=== PATIENT | female | born 1980 | race Caucasian/White ===

== ENCOUNTER 2017-03-28 13:22 | Emergency (ER) | payer OTHER ==
[2017-03-28 14:50] LABS: BASOPHIL 0.4 % (0-2); EOSINOPHIL 0.9 % (0-5); HCT 40.5 % (37.0-47.0); HGB 14.4 g/dl (12.5-16.0); LYMPHOCYTE 18.9 % (15-48); MCH 31.1 pg (25.0-31.0); MCHC 35.6 g/dL (32.0-36.0); MCV 87.5 fL (78.0-100.0); MPV 9.9 fL (6.0-9.5); NEUTROPHIL 70.8 % (41-80); PLT 251 K/uL (150-400); RBC 4.63 M/uL (4.20-5.40); RDW 12.1 % (11.5-14.0); WBC 7.7 K/uL (4.0-10.5)
[2017-03-28 15:06] LABS: CREATININE 0.7 mg/dL (0.5-1.0); POTASSIUM 3.4 mmol/L (3.5-5.1)
[2017-03-28 15:45] LABS: BILIRUBIN NEGATIVE (NEGATIVE); BLOOD TRACE-INTACT Ery/uL (NEGATIVE); CLARITY CLEAR (CLEAR); COLOR YELLOW (YELLOW); GLUCOSE (U) NORMAL (NORMAL); KETONE (U) NEGATIVE (NEGATIVE); LEUKOCYTES NEGATIVE Leu/uL (NEGATIVE); NITRITE NEGATIVE (NEGATIVE); PROTEIN NEGATIVE (NEGATIVE); UROBILINOGEN 0.2 mg/dL (0.2-1.0)
[2017-03-28 15:47] LABS: URINARY RBC RARE; URINARY WBC RARE
[2017-03-28 15:50] LABS: AMPHETAMINES POSITIVE (NEGATIVE); BARBITURATES NEGATIVE (NEGATIVE); BENZODIAZEPINES NEGATIVE (NEGATIVE); COCAINE NEGATIVE (NEGATIVE); MARIJUANA (THC) POSITIVE (NEGATIVE); METHADONE NEGATIVE (NEGATIVE); TRICYCLIC ANTIDEPRESSANT NEGATIVE (NEGATIVE)
== END 2017-03-28 16:32 | disposition home or self-care (01) ==
LOC: FER 13:22
PROVIDERS: Nurse Practitioner Family
DX: F41.1 Generalized anxiety disorder (principal); F12.10 Cannabis abuse, uncomplicated; F31.9 Bipolar disorder, unspecified
CPT/HCPCS: 36415; 80048; 80305; 81001; 85025

== ENCOUNTER 2021-10-13 12:53 | Emergency (ER) | payer OTHER ==
[~2021-10-13 12:53] MED LIST: ZOFRAN8 MG PO
[2021-10-13 16:06] LABS: BASOPHIL 0.7 % (0-2); EOSINOPHIL 0.2 % (0-5); HCT 40.8 % (37.0-47.0); HGB 14.1 g/dl (12.5-16.0); LYMPHOCYTE 24.3 % (15-48); MCH 30.3 pg (25.0-31.0); MCHC 34.6 g/dL (32.0-36.0); MCV 87.6 fL (78.0-100.0); MONOCYTE 8.9 % (0-12); MPV 10.1 fL (6.0-9.5); NEUTROPHIL 65.5 % (41-80); NRBC 0; PLT 312 K/uL (150-400); RBC 4.66 M/uL (4.20-5.40); RDW 12.3 % (11.5-14.0); WBC 10.4 K/uL (4.0-10.5)
[2021-10-13 16:31] LABS: ALBUMIN 3.7 g/dL (3.4-5.0); BILIRUBIN - TOTAL 0.6 mg/dL (0.2-1.0); BUN/CREAT RATIO (CALC) 16.5 RATIO; CREATININE 1.03 mg/dL (0.51-0.95); GLOBULIN (CALCULATION) 3.1 g/dL; POTASSIUM 3.8 mmol/L (3.5-5.1); TOTAL PROTEIN 6.8 g/dL (6.4-8.2)
[2021-10-13 16:53] LABS: CORONAVIRUS 2019 SARS-COV-2 NEGATIVE (NEGATIVE); INFLUENZA A NAA NEGATIVE (NEGATIVE)
[2021-10-13] MEDS ORDERED: REGLAN10 MG PO (17:52)
== END 2021-10-13 18:09 | disposition home or self-care (01) ==
LOC: FER 12:53
PROVIDERS: Nurse Practitioner Family
DX: R11.2 Nausea with vomiting, unspecified (principal); R10.9 Unspecified abdominal pain; Z20.822 Contact with and (suspected) exposure to COVID-19; Z88.5 Allergy status to narcotic agent
CPT/HCPCS: 36415; 80053; 83690; 85025; J7030; Q9967; U0002

== ENCOUNTER 2022-02-15 18:03 | Emergency (ER) | payer OTHER ==
[~2022-02-15 18:03] MED LIST changes: +REGLAN10 MG PO
[2022-02-15] MEDS ORDERED: NAPROXEN500 MG PO (21:01)
[2022-02-15] MEDS ORDERED: BACLOFEN 10MG T10 MG PO (21:01)
== END 2022-02-15 21:15 | disposition home or self-care (01) ==
LOC: FER 18:03
DX: M54.50 Low back pain, unspecified (principal); M25.561 Pain in right knee; M25.551 Pain in right hip; I25.2 Old myocardial infarction; V49.40XA Driver injured in collision with unspecified motor vehicles in traffic accident, initial encounter; Z88.5 Allergy status to narcotic agent
CPT/HCPCS: 72110; 73502; 73564; 96372; J1100; J1885

== ENCOUNTER 2022-04-10 17:35 | Emergency (ER) | payer OTHER ==
[~2022-04-10 17:35] MED LIST changes: +BACLOFEN 10MG T10 MG PO; +NAPROXEN500 MG PO
== END 2022-04-10 21:05 | disposition home or self-care (01) ==
LOC: FER 17:35
DX: S16.1XXA Strain of muscle, fascia and tendon at neck level, initial encounter (principal); S29.012A Strain of muscle and tendon of back wall of thorax, initial encounter; M25.561 Pain in right knee; F17.210 Nicotine dependence, cigarettes, uncomplicated; Z88.5 Allergy status to narcotic agent; V43.52XA Car driver injured in collision with other type car in traffic accident, initial encounter
CPT/HCPCS: 72125; 72128; 73560